=== PATIENT | female | born 1980 | race African-American/Black ===

== ENCOUNTER 2016-07-30 23:08 | Emergency (ER) | payer OTHER | END 2016-07-31 01:10 | disposition home or self-care (01) | LOC: FER 23:08 | DX: S46.012A Strain of muscle(s) and tendon(s) of the rotator cuff of left shoulder, initial encounter (principal); M54.2 Cervicalgia; R53.1 Weakness; X50.0XXA Overexertion from strenuous movement or load, initial encounter | CPT/HCPCS: 73030; J1100; J1885 ==

== ENCOUNTER 2016-11-21 20:27 | Emergency (ER) | payer OTHER ==
[2016-11-21 22:01] LABS: BILIRUBIN NEGATIVE (NEGATIVE); BLOOD 1+ Ery/uL (NEGATIVE); CLARITY CLEAR (CLEAR); COLOR YELLOW (YELLOW); GLUCOSE (U) NORMAL (NORMAL); KETONE (U) NEGATIVE (NEGATIVE); LEUKOCYTES NEGATIVE Leu/uL (NEGATIVE); NITRITE NEGATIVE (NEGATIVE); PROTEIN NEGATIVE (NEGATIVE); SPECIFIC GRAVITY <=1.005 (1.001-1.030); UROBILINOGEN 0.2 mg/dL (0.2-1.0)
[2016-11-21 22:05] LABS: BACTERIA TRACE; URINARY WBC RARE
[2016-11-21 22:29] LABS: BASOPHIL 0.2 % (0-2); EOSINOPHIL 1.3 % (0-5); HCT 40.6 % (37.0-47.0); HGB 13.8 g/dl (12.5-16.0); MCH 28.3 pg (25.0-31.0); MCV 83.4 fL (78.0-100.0); MONOCYTE 10.2 % (0-12); MPV 11.2 fL (6.0-9.5); NEUTROPHIL 51.3 % (41-80); PLT 233 K/uL (150-400); RBC 4.87 M/uL (4.20-5.40); RDW 14.1 % (11.5-14.0); WBC 8.3 K/uL (4.0-10.5)
[2016-11-21 22:45] LABS: ALBUMIN 4.3 g/dL (3.5-5.0); BILIRUBIN - TOTAL 0.3 mg/dL (0.1-1.0); CREATININE 0.5 mg/dL (0.5-1.0); GLOBULIN (CALCULATION) 3.7 g/dL (2.2-4.2); POTASSIUM 3.7 mmol/L (3.5-5.1)
== END 2016-11-21 23:26 | disposition home or self-care (01) ==
LOC: FER 20:27
PROVIDERS: Emergency Medicine
DX: N20.0 Calculus of kidney (principal)
CPT/HCPCS: 36415; 80053; 81001; 85025; J1885